=== PATIENT | female | born 1985 | race Asian ===

== ENCOUNTER 2018-05-18 10:51 | Emergency (ER) | payer OTHER ==
[2018-05-18 11:39] LABS: URINE HCG POC HCG NEGATIVE (Negative)
[2018-05-18 11:40] LABS: BILIRUBIN,URINE SMALL (NEG); CLARITY,URINE CLEAR; COLOR,URINE AMBER; GLUCOSE,URINE NEGATIVE (NEG); NITRITE,URINE NEGATIVE (NEG); PROTEIN,URINE NEGATIVE (NEG-TRACE)
[2018-05-18 11:49] LABS: BACTERIA,URINE MODERATE /HPF (0-FEW); SQUAMOUS EPITHELIAL CELL,UR MANY /LPF
== END 2018-05-18 12:15 | disposition home or self-care (01) ==
LOC: ER 12:15
DX: M54.2 Cervicalgia (principal)
CPT/HCPCS: 81001; 81025; 87086; 99284

== ENCOUNTER 2018-07-03 17:51 | Emergency (ER) | payer OTHER ==
[~2018-07-03] VITALS: Ht 157.5 cm; Wt 46.3 kg
[~2018-07-03 17:51] MED LIST: CEPH-264 PO; CYCL10TA2 PO; HYDR-971 PO; NAPR-514 PO; NAPR500T8 PO; PNV1TABL25 PO
[2018-07-03 19:27] LABS: BILIRUBIN,URINE NEGATIVE (NEG); CLARITY,URINE CLEAR; COLOR,URINE YELLOW; NITRITE,URINE NEGATIVE (NEG); PROTEIN,URINE NEGATIVE (NEG-TRACE)
[2018-07-03 19:32] LABS: RBC,URINE 0 /HPF (0-2); SQUAMOUS EPITHELIAL CELL,UR MANY /LPF; WBC,URINE OCC /HPF (0-4)
[2018-07-03 19:33] LABS: BACTERIA,URINE MODERATE /HPF (0-FEW)
--- NOTE | 2018-07-03 19:58 | PHYS DOC ---
Past Medical History Past Medical History: No Pertinent History Additional Past Medical Histor: TB Past Surgical History: No Surgical History Alcohol Use: None Drug Use: None Adult General Chief Complaint Chief Complaint: BACK PAIN - NO INJURY HPI HPI Patient is a 33 year old female presenting with low back pain and concerned about last motion. Was June 02. Back pain feels tight worse with twisting and moving no bowel or bladder incontinence no leg symptoms no abdominal pain no vaginal bleeding no other symptoms no dysuria Review of Systems Review of Systems Constitutional: Denies fever or chills [] Eyes: Denies change in visual acuity, redness, or eye pain [] HENT: Denies nasal congestion or sore throat [] Respiratory: Denies cough or shortness of breath [] Cardiovascular: No additional information not addressed in HPI [] GI: Denies abdominal pain, nausea, vomiting, bloody stools or diarrhea [] All other systems were reviewed and found to be within normal limits, except as documented in this note. Allergies Allergies Allergies Coded Allergies Type Severity Reaction Last Updated Verified No Known Drug Allergies 07/10/16 No Physical Exam Physical Exam Constitutional: Well developed, well nourished, no acute distress, non-toxic appearance. [] HENT: Normocephalic, atraumatic, bilateral external ears normal, oropharynx moist, no oral exudates, nose normal. [] Eyes: PERRLA, EOMI, conjunctiva normal, no discharge. [] Neck: Normal range of motion, no tenderness, supple, no stridor. [] Normal effort no increased work of breathing back there was mild paraspinous tenderness in the lumbar spine area. Abdomen: Bowel sounds normal, soft, no tenderness, no masses, no pulsatile masses. [] Skin: Warm, dry, no erythema, no rash. [] Extremities: No tenderness, no cyanosis, no clubbing, ROM intact, no edema. [] Neurologic: Alert and oriented X 3, normal motor function, normal sensory function, no focal deficits noted. [] Psychologic: Affect normal, judgement normal, mood normal. [] Current Patient Data Vital Signs Vital Signs Date Time Temp Pulse Resp B/P (MAP) Pulse Ox O2 Delivery O2 Flow Rate FiO2 07/03/18 19:06 98.1 77 16 109/72 (84) 99 Room Air 98.1 Lab Values Laboratory Tests Test 07/03/18 19:18 07/03/18 19:20 Urine Collection Type Unknown Urine Color Yellow Urine Clarity Clear Urine pH 6.0 Urine Specific [place] 1.025 Urine Protein Negative mg/dL (NEG-TRACE) Urine Glucose (UA) 100 mg/dL (NEG) Urine Ketones (Stick) Negative mg/dL (NEG) Urine Blood Negative (NEG) Urine Nitrite Negative (NEG) Urine Bilirubin Negative (NEG) Urine Urobilinogen Dipstick 1.0 mg/dL (0.2 mg/dL) Urine Leukocyte Esterase Negative (NEG) Urine RBC 0 /HPF (0-2) Urine WBC Occ /HPF (0-4) Urine Squamous Epithelial Cells Many /LPF Urine Bacteria Moderate /HPF (0-FEW) Urine Mucus Marked /LPF POC Urine HCG, Qualitative Hcg positive (Negative) EKG EKG [] Radiology/Procedures Radiology/Procedures [] Course & Med Decision Making Course & Med Decision Making Pertinent Labs and Imaging studies reviewed. (See chart for details) []Interpreted test is positive by dates the patient will be 4 weeks there are no abdominal symptoms no vaginal bleeding she is having muscular type back pain history was obtained with an waiter/waitress bar. Patient was encouraged to follow up with OB for routine care within 2 weeks ago the urinalysis there are many squames I suspect this is a contaminated sample patient was recommended to take Tylenol as needed for back pain. Dragon Disclaimer Dragon Disclaimer This electronic medical record was generated, in whole or in part, using a voice recognition dictation system. Departure Departure Impression: Primary Impression: Disposition: 01 HOME, SELF-CARE Condition: STABLE Referrals: CIELO BURGOS Jr, MD Patient Instructions: - First Trimester, [id number] Additional Instructions: see ob doctor within 2-3 weeks JESUS CHONG MD Jul 03, 2018 19:58
[2018-07-03 20:00] VITALS: BP 99/71
== END 2018-07-03 20:29 | disposition home or self-care (01) ==
LOC: ER 17:51
DX: Z33.1 Pregnant state, incidental (principal); M54.5 Low back pain
CPT/HCPCS: 81001; 81025; 87086; 99284

== ENCOUNTER 2018-07-05 08:49 | Emergency (ER) | payer OTHER ==
[~2018-07-05] VITALS: Ht 152.4 cm; Wt 45.4 kg
[2018-07-05 09:02] VITALS: BP 108/77
[2018-07-05 09:09] LABS: BILIRUBIN,URINE SMALL (NEG); NITRITE,URINE NEGATIVE (NEG); PROTEIN,URINE 30 mg/dL (NEG-TRACE)
--- NOTE | 2018-07-05 09:19 | PHYS DOC ---
Past Medical History Past Medical History: No Pertinent History Additional Past Medical Histor: TB Past Surgical History: No Surgical History Alcohol Use: None Drug Use: None Adult General Chief Complaint Chief Complaint: VAGINAL BLEEDING HPI HPI Patient is a 33 year old female who presents with vaginal bleeding in that begun today. She describes it as small amount of brown blood. Patient is a 5 para 4 last menstrual cycle May 31, 2018. Patient denies any abdominal pain, denies any nausea/ vomiting. Denies any urgency frequency or dysuria. She states she was here 2 days ago and was informed she is . Denies any trauma. Review of Systems Review of Systems Constitutional: Denies fever or chills [] Eyes: Denies change in visual acuity, redness, or eye pain [] HENT: Denies nasal congestion or sore throat [] Respiratory: Denies cough or shortness of breath [] Cardiovascular: No additional information not addressed in HPI [] GI: Reports vaginal bleeding in . Denies abdominal pain, nausea, vomiting, bloody stools or diarrhea [] : Denies dysuria or hematuria [] Musculoskeletal: Denies back pain or joint pain [] Integument: Denies rash or skin lesions [] Neurologic: Denies headache, focal weakness or sensory changes [] All other systems were reviewed and found to be within normal limits, except as documented in this note. Allergies Allergies Allergies Coded Allergies Type Severity Reaction Last Updated Verified No Known Drug Allergies 07/10/16 No Physical Exam Physical Exam Constitutional: Well developed, well nourished, no acute distress, non-toxic appearance. [] HENT: Normocephalic, atraumatic, bilateral external ears normal, oropharynx moist, no oral exudates, nose normal. [] Eyes: PERRLA, EOMI, conjunctiva normal, no discharge. [] Neck: Normal range of motion, no tenderness, supple, no stridor. [] Cardiovascular:Heart rate regular rhythm, no murmur [] Lungs & Thorax: Bilateral breath sounds clear to auscultation [] Abdomen: Bowel sounds normal, soft, no tenderness, no masses, no pulsatile masses. [] Pelvic exam External pelvic appears normal. Cervix is closed, no CMT, no adnexal tenderness , trace amount of brownish discharge in the vaginal vault. Skin: Warm, dry, no erythema, no rash. [] Back: No tenderness, no CVA tenderness. [] Extremities: No tenderness, no cyanosis, no clubbing, ROM intact, no edema. [] Neurologic: Alert and oriented X 3, normal motor function, normal sensory function, no focal deficits noted. [] Psychologic: Affect normal, judgement normal, mood normal. [] Current Patient Data Vital Signs Vital Signs Date Time Temp Pulse Resp B/P (MAP) Pulse Ox O2 Delivery O2 Flow Rate FiO2 07/05/18 09:02 98.4 89 18 108/77 (87) 89 Room Air 98.4 Lab Values Laboratory Tests Test 07/05/18 08:56 07/05/18 09:00 07/05/18 09:35 Urine Collection Type Void Urine Color Yellow Urine Clarity Hazy Urine pH 6.0 Urine Specific [place] 1.025 Urine Protein 30 mg/dL (NEG-TRACE) Urine Glucose (UA) Negative mg/dL (NEG) Urine Ketones (Stick) Trace mg/dL (NEG) Urine Blood Large (NEG) Urine Nitrite Negative (NEG) Urine Bilirubin Small (NEG) Urine Urobilinogen Dipstick 1.0 mg/dL (0.2 mg/dL) Urine Leukocyte Esterase Negative (NEG) Urine RBC >40 /HPF (0-2) Urine WBC 0 /HPF (0-4) Urine Squamous Epithelial Cells Mod /LPF Urine Bacteria Few /HPF (0-FEW) Urine Mucus Marked /LPF POC Urine HCG, Qualitative Hcg positive (Negative) White Blood Count 6.9 x10^3/uL (4.0-11.0) Red Blood Count 4.52 x10^6/uL (3.50-5.40) Hemoglobin 13.6 g/dL (12.0-15.5) Hematocrit 39.3 % (36.0-47.0) Mean Corpuscular Volume 87 fL (79-100) Mean Corpuscular Hemoglobin 30 pg (25-35) Mean Corpuscular Hemoglobin Concent 35 g/dL (31-37) Red Cell Distribution Width 12.3 % (11.5-14.5) Platelet Count 230 x10^3/uL (140-400) Neutrophils (%) (Auto) 62 % (31-73) Lymphocytes (%) (Auto) 26 % (24-48) Monocytes (%) (Auto) 6 % (0-9) Eosinophils (%) (Auto) 5 % (0-3) H Basophils (%) (Auto) 1 % (0-3) Neutrophils # (Auto) 4.3 x10^3uL (1.8-7.7) Lymphocytes # (Auto) 1.8 x10^3/uL (1.0-4.8) Monocytes # (Auto) 0.4 x10^3/uL (0.0-1.1) Eosinophils # (Auto) 0.4 x10^3/uL (0.0-0.7) Basophils # (Auto) 0.0 x10^3/uL (0.0-0.2) Maternal Serum HCG Beta Subunit 91596 mIU/mL (0-5) H Sodium Level 138 mmol/L (136-145) Potassium Level 3.3 mmol/L (3.5-5.1) L Chloride Level 104 mmol/L (98-107) Carbon Dioxide Level 26 mmol/L (21-32) Anion Gap 8 (6-14) Blood Urea Nitrogen 8 mg/dL (7-20) Creatinine 0.7 mg/dL (0.6-1.0) Estimated GFR (Cockcroft-Gault) 97.6 Glucose Level 98 mg/dL (70-99) Calcium Level 8.9 mg/dL (8.5-10.1) Laboratory Tests 07/05/18 09:35 Laboratory Tests 07/05/18 09:35 Microbiology 07/05/18 Wet Prep - Final, Complete EKG EKG [] Radiology/Procedures Radiology/Procedures []PROCEDURE: OB <14 WKS W/TV Obstetrical ultrasound, 07/05/2018: HISTORY: , vaginal bleeding The uterus is enlarged. It demonstrates a single gestational sac. The gestational sac contains a pole demonstrating a crown-rump length of 7 mm compatible with a gestational age of 6 weeks and 4 days. This yields a sonographic EDC of 02/24/2018. cardiac activity is present with a heart rate of 132 bpm. Directly adjacent to the gestational sac there is a hypoechoic process measuring approximately 2 x 2 x 2.2 cm, compatible with a subchorionic hemorrhage. There is also a larger heterogeneous mass adjacent to the gestational sac which appears to lie within or protruding into the uterine cavity, measuring 4.1 x 2.5 x 4.2 cm. it demonstrates isoechoic and hyperechoic components. The ovaries are of normal size. A 1.4 cm simple cyst is present in the right ovary. No adnexal mass is seen. No free fluid is evident in the pelvis. IMPRESSION: 1. Single viable intrauterine fetus of 6-7 weeks gestational age. 2. Small subchorionic hemorrhage. 3. Additional heterogeneous mass in the central uterine cavity with diagnostic considerations including an organized hematoma, endometrial polyp or submucosal fibroid. This does not have the appearance of a blighted twin or gestational trophoblastic disease. 4. Small right ovarian cyst. 5. Sonographic follow-up is suggested. Electronically signed by: Krishna Go MD (07/05/2018 10:11 AM) [facility] DICTATED and SIGNED BY: KRISHNA GO MD DATE: 07/05/18 1000 Course & Med Decision Making Course & Med Decision Making Pertinent Labs and Imaging studies reviewed. (See chart for details) This is a 33-year-old female 5 para 4 presenting to the ED today with vaginal bleeding in that began this morning. She had trace spotting on vaginal exam. Positive urine hCG, urine analysis is negative for infection. Beta hCG 28,529. Wet prep is negative for any acute findings. CBC with a normal hemoglobin and hematocrit, BMP with no acute findings. Blood group B positive. OB ultrasound IMPRESSION: 1. Single viable intrauterine fetus of 6-7 weeks gestational age. 2. Small subchorionic hemorrhage. 3. Additional heterogeneous mass in the central uterine cavity with diagnostic considerations including an organized hematoma, endometrial polyp or submucosal fibroid. This does not have the appearance of a blighted twin or gestational trophoblastic disease. 4. Small right ovarian cyst. 5. Sonographic follow-up is suggested. Results were given to patient. Pelvic rest was recommended. Patient was instructed to follow-up with her YOUTUBER on Saturday. Provided proper return precautions including the need to return to the ED at any point symptoms worsen or she has new concerning symptoms. Dragon Disclaimer Dragon Disclaimer This electronic medical record was generated, in whole or in part, using a voice recognition dictation system. Departure Departure Impression: Primary Impression: Threatened Additional Impression: Subchorionic bleed Disposition: HOME, SELF-CARE Condition: STABLE Referrals: NO PCP (PCP) CIELO BURGOS Jr, MD follow up with the OBGYN on Saturday Patient Instructions: Threatened Miscarriage, [id number] Additional Instructions: You were seen for vaginal bleeding in . Please maintain pelvic rest, do not have sex until you're seen by the YOUTUBER, do not do any strenuous activities. Contact your YOUTUBER or the provided YOUTUBER on Saturday and set up a follow-up appointment as soon as possible. Please return to the emergency room at any point symptoms worsen. Problem Qualifiers Additional Impression: Subchorionic bleed Fetus number: single or unspecified fetus Trimester: first trimester Qualified Codes: O41.8X10 - Other specified disorders of amniotic fluid and membranes, first trimester, not applicable or unspecified; O46.8X1 - Other antepartum hemorrhage, first trimester TORRES BECERRA FLOOR COVERER Jul 05, 2018 09:19
[2018-07-05 09:25] LABS: CLARITY,URINE HAZY; COLOR,URINE YELLOW
[2018-07-05 09:26] LABS: BACTERIA,URINE FEW /HPF (0-FEW); RBC,URINE >40 /HPF (0-2); SQUAMOUS EPITHELIAL CELL,UR MOD /LPF; WBC,URINE 0 /HPF (0-4)
[2018-07-05 09:55] LABS: CALCIUM 8.9 mg/dL (8.5-10.1); CREATININE 0.7 mg/dL (0.6-1.0); GFR 97.6; POTASSIUM 3.3 mmol/L (3.5-5.1)
[2018-07-05 09:56] LABS: BASO % 1 % (0-3); EOS # 0.4 x10^3/uL (0.0-0.7); EOS % 5 % (0-3); HEMATOCRIT 39.3 % (36.0-47.0); HEMOGLOBIN 13.6 g/dL (12.0-15.5); LYMPH # 1.8 x10^3/uL (1.0-4.8); LYMPH % 26 % (24-48); MEAN CORPUSCULAR HEMOGLOBIN 30 pg (25-35); MEAN CORPUSCULAR HGB CONC 35 g/dL (31-37); MEAN CORPUSCULAR VOLUME 87 fL (79-100); MONO # 0.4 x10^3/uL (0.0-1.1); MONO % 6 % (0-9); NEUT # 4.3 x10^3uL (1.8-7.7); NEUT % 62 % (31-73); PLATELET COUNT 230 x10^3/uL (140-400); RED BLOOD COUNT 4.52 x10^6/uL (3.50-5.40); RED CELL DISTRIBUTION WIDTH 12.3 % (11.5-14.5); WHITE BLOOD COUNT 6.9 x10^3/uL (4.0-11.0)
--- NOTE | 2018-07-05 10:15 | RAD ---
Obstetrical ultrasound, 07/05/2018: HISTORY: , vaginal bleeding The uterus is enlarged. It demonstrates a single gestational sac. The gestational sac contains a pole demonstrating a crown-rump length of 7 mm compatible with a gestational age of 6 weeks and 4 days. This yields a sonographic EDC of 02/24/2018. cardiac activity is present with a heart rate of 132 bpm. Directly adjacent to the gestational sac there is a hypoechoic process measuring approximately 2 x 2 x 2.2 cm, compatible with a subchorionic hemorrhage. There is also a larger heterogeneous mass adjacent to the gestational sac which appears to lie within or protruding into the uterine cavity, measuring 4.1 x 2.5 x 4.2 cm. it demonstrates isoechoic and hyperechoic components. The ovaries are of normal size. A 1.4 cm simple cyst is present in the right ovary. No adnexal mass is seen. No free fluid is evident in the pelvis. IMPRESSION: 1. Single viable intrauterine fetus of 6-7 weeks gestational age. 2. Small subchorionic hemorrhage. 3. Additional heterogeneous mass in the central uterine cavity with diagnostic considerations including an organized hematoma, endometrial polyp or submucosal fibroid. This does not have the appearance of a blighted twin or gestational trophoblastic disease. 4. Small right ovarian cyst. 5. Sonographic follow-up is suggested. Electronically signed by: Krishna Go MD (07/05/2018 10:11 AM) [facility]
[2018-07-07 14:31] LABS: GC PROBE Negative (Negative)
== END 2018-07-05 11:55 | disposition home or self-care (01) ==
LOC: ER 08:49
DX: O20.0 Threatened abortion (principal); O46.8X1 Other antepartum hemorrhage, first trimester; Z3A.01 Less than 8 weeks gestation of pregnancy
CPT/HCPCS: 36415; 76801; 76817; 80048; 81001; 81025; 84702; 85025; 86850; 86870; 86900; 86901; 86902; 87491; 87591; 99285; Q0111

== ENCOUNTER 2018-08-29 15:29 | Emergency (ER) | payer OTHER ==
[~2018-08-29] VITALS: Ht 160 cm; Wt 45.4 kg
[2018-08-29 17:50] LABS: BILIRUBIN,URINE NEGATIVE (NEG); CLARITY,URINE CLEAR; COLOR,URINE YELLOW; NITRITE,URINE NEGATIVE (NEG); PROTEIN,URINE NEGATIVE (NEG-TRACE)
[2018-08-29 18:04] LABS: BACTERIA,URINE MODERATE /HPF (0-FEW); RBC,URINE RARE /HPF (0-2); SQUAMOUS EPITHELIAL CELL,UR MANY /LPF; WBC,URINE OCC /HPF (0-4)
--- NOTE | 2018-08-29 18:34 | PHYS DOC ---
Past Medical History Past Medical History: No Pertinent History Additional Past Medical Histor: TB Past Surgical History: No Surgical History Alcohol Use: None Drug Use: None Adult General Chief Complaint Chief Complaint: GI PROBLEM HPI HPI Patient is a 33 year old female who presents with Left sided mid abdominal pain. Patient is . Review of Systems Review of Systems Constitutional: Denies fever or chills [] Eyes: Denies change in visual acuity, redness, or eye pain [] HENT: Denies nasal congestion or sore throat [] Respiratory: Denies cough or shortness of breath [] Cardiovascular: No additional information not addressed in HPI [] GI: Denies abdominal pain, nausea, vomiting, bloody stools or diarrhea [] : Denies dysuria or hematuria [] Musculoskeletal: Denies back pain or joint pain [] Integument: Denies rash or skin lesions [] Neurologic: Denies headache, focal weakness or sensory changes [] Endocrine: Denies polyuria or polydipsia [] All other systems were reviewed and found to be within normal limits, except as documented in this note. Allergies Allergies Allergies Coded Allergies Type Severity Reaction Last Updated Verified No Known Drug Allergies 07/10/16 No Physical Exam Physical Exam Constitutional: Well developed, well nourished, no acute distress, non-toxic appearance. [] HENT: Normocephalic, atraumatic, bilateral external ears normal, oropharynx moist, no oral exudates, nose normal. [] Eyes: PERRLA, EOMI, conjunctiva normal, no discharge. [] Neck: Normal range of motion, no tenderness, supple, no stridor. [] Cardiovascular:Heart rate regular rhythm, no murmur [] Lungs & Thorax: Bilateral breath sounds clear to auscultation [] Abdomen: Bowel sounds normal, soft, no tenderness, no masses, no pulsatile masses. [] Skin: Warm, dry, no erythema, no rash. [] Back: No tenderness, no CVA tenderness. [] Extremities: No tenderness, no cyanosis, no clubbing, ROM intact, no edema. [] Neurologic: Alert and oriented X 3, normal motor function, normal sensory function, no focal deficits noted. [] Psychologic: Affect normal, judgement normal, mood normal. [] Current Patient Data Vital Signs Vital Signs Date Time Temp Pulse Resp B/P (MAP) Pulse Ox O2 Delivery O2 Flow Rate FiO2 10/5/18 16:35 98.5 17 98/53 (68) 99 98.5 Lab Values Laboratory Tests Test 08/29/18 17:25 08/29/18 17:45 Urine Collection Type Unknown Urine Color Yellow Urine Clarity Clear Urine pH 7.0 Urine Specific [place] 1.015 Urine Protein Negative mg/dL (NEG-TRACE) Urine Glucose (UA) Negative mg/dL (NEG) Urine Ketones (Stick) Negative mg/dL (NEG) Urine Blood Negative (NEG) Urine Nitrite Negative (NEG) Urine Bilirubin Negative (NEG) Urine Urobilinogen Dipstick 1.0 mg/dL (0.2 mg/dL) Urine Leukocyte Esterase Trace (NEG) Urine RBC Rare /HPF (0-2) Urine WBC Occ /HPF (0-4) Urine Squamous Epithelial Cells Many /LPF Urine Bacteria Moderate /HPF (0-FEW) Maternal Serum HCG Beta Subunit 11084 mIU/mL (0-5) H EKG EKG [] Radiology/Procedures Radiology/Procedures Abdominal US Impressions: [facility] [address] [place], [place] [id number] IMAGING REPORT Signed PATIENT: YORDY STEINER ACCOUNT: [id number] : 1985 LOCATION: ER AGE: 33 SEX: F EXAM STATUS: REG ER ORD. PHYSICIAN: JOHANN CHUN APRN REASON: ABDOMINAL PAIN PROCEDURE: PREG MORE THAN OR EQ TO 14 WKS Limited OB ultrasound greater than 14 weeks 08/29/2018 CLINICAL HISTORY: Second trimester with abdominal pain. TECHNIQUE: A real-time ultrasound examination of the gravid uterus was performed. Multiple images were obtained. FINDINGS: Comparison study is dated 07/05/2018. There is a single living IUP. cardiac and somatic activity is seen. heart rate is 162 bpm. The fetus is in a variable position. The placenta is in a fundal location. No abnormality of the placenta is seen. The amniotic fluid volume is within normal limits. The maternal cervix is closed. It measures 3.1 cm in length. Neither maternal ovary is visualized. The following measurements were obtained: BPD 3.2 cm 16 weeks 0 days HC 11.9 cm 15 weeks 6 days AC 9.2 cm 15 weeks 3 days FL 1.7 cm 15 weeks 0 days The estimated gestational age by ultrasound is 15 weeks 4 days plus or minus a standard deviation of 10 days. The estimated date of delivery by ultrasound today study is 02/16/2019. Since the previous examination there has been appropriate interval growth. Detailed evaluation of anatomy was not performed due to the early age of this gestation. IMPRESSION: Single living IUP with an estimated gestational age by ultrasound of 15 weeks 4 days +/- a standard deviation of 10 days. Since the previous examination there has been appropriate interval growth. Electronically signed by: Galileo Montano MD (08/29/2018 6:38 PM) [facility] DICTATED and SIGNED BY: GALILEO MONTANO MD DATE: 08/29/181828 Course & Med Decision Making Course & Med Decision Making 33 year old female that presents with left sided mid abdominal pain that comes and goes for the last month. Abdomen is soft and nontender. Lungs are clear to auscultation. Patient complains of no pain. Patient denies any vaginal bleeding or vaginal discharge. Patient denies any urinary symptoms. Patient states that her last bowel movement was this morning and it was normal for her. Patient denies any nausea, vomiting, diarrhea. Patient states she has taken no medications. Patient states that she sees Dr. Shrestha for an OB. Patient states she is unsure of how she is. Patient's last first day of her period was May 14. Patient has been 5 times and has had her children. Patient states that her right-sided mid abdominal pain started Abdominal pain started this morning at 8:00 after she lifted her urine half old daughter and then states that the pain went away and then came back around 10:00 and then was only there for 30 minutes and then left again. His urine is slightly infected and she will be treated for urinary tract infection. Ultrasound shows Single living IUP with an estimated gestational age by ultrasound of 15 weeks 4 days +/- a standard deviation of 10 days. Since the previous examination there has been appropriate interval growth. Patient still has no abdominal pain upon reexamination. Patient is stable and will be discharged. Patient should follow up with her primary care or her OB doc as soon as possible. Patient should come back to the ED if she begins having constant intense abdominal pain , vaginal bleeding. [] Dragon Disclaimer Dragon Disclaimer This electronic medical record was generated, in whole or in part, using a voice recognition dictation system. Departure Departure Impression: Primary Impression: Abdominal pain during Disposition: 01 HOME, SELF-CARE Condition: STABLE Referrals: CARITO HOWARD MD (PCP) Patient Instructions: Abdominal Pain During Additional Instructions: Follow up with your primary care physician or OB as soon as possible. Return to the ED if you begin bleeding vaginally or have continuous intense abdominal pain. Scripts Nitrofurantoin Monohyd/M-Cryst (MACROBID 100 MG CAPSULE) 100 Mg Capsule 1 CAP PO BID, #14 CAP Prov: JOHANN CHUN APRN 08/29/18 Problem Qualifiers Primary Impression: Abdominal pain during Trimester: first trimester Qualified Codes: O26.891 - Other specified related conditions, first trimester; R10.9 - Unspecified abdominal pain JOHANN CHUN INJECTION MOLDING TECHNICIAN Aug 29, 2018 18:34
--- NOTE | 2018-08-29 18:42 | RAD ---
Limited OB ultrasound greater than 14 weeks 08/29/2018 CLINICAL HISTORY: Second trimester with abdominal pain. TECHNIQUE: A real-time ultrasound examination of the gravid uterus was performed. Multiple images were obtained. FINDINGS: Comparison study is dated 07/05/2018. There is a single living IUP. cardiac and somatic activity is seen. heart rate is 162 bpm. The fetus is in a variable position. The placenta is in a fundal location. No abnormality of the placenta is seen. The amniotic fluid volume is within normal limits. The maternal cervix is closed. It measures 3.1 cm in length. Neither maternal ovary is visualized. The following measurements were obtained: BPD 3.2 cm 16 weeks 0 days HC 11.9 cm 15 weeks 6 days AC 9.2 cm 15 weeks 3 days FL 1.7 cm 15 weeks 0 days The estimated gestational age by ultrasound is 15 weeks 4 days plus or minus a standard deviation of 10 days. The estimated date of delivery by ultrasound today study is 02/16/2019. Since the previous examination there has been appropriate interval growth. Detailed evaluation of anatomy was not performed due to the early age of this gestation. IMPRESSION: Single living IUP with an estimated gestational age by ultrasound of 15 weeks 4 days +/- a standard deviation of 10 days. Since the previous examination there has been appropriate interval growth. Electronically signed by: Galileo Montano MD (08/29/2018 6:38 PM) [facility]
[2018-08-29] MEDS ORDERED: NITR100C62 PO (19:19)
[2018-08-29 19:26] VITALS: BP 94/57
== END 2018-08-29 19:28 | disposition home or self-care (01) ==
LOC: ER 15:29
DX: O26.892 Other specified pregnancy related conditions, second trimester (principal); R10.9 Unspecified abdominal pain; Z3A.15 15 weeks gestation of pregnancy
CPT/HCPCS: 36415; 76805; 81001; 84702; 99285-25

== ENCOUNTER → 2018-10-06 | Outpatient (CLI) | payer OTHER ==
[~2018-10-06] MED LIST changes: +NITR100C62 PO
[2018-10-06 10:07] LABS: BILIRUBIN,URINE NEGATIVE (NEG); CLARITY,URINE CLEAR; COLOR,URINE YELLOW; NITRITE,URINE NEGATIVE (NEG); PROTEIN,URINE NEGATIVE (NEG-TRACE)
[2018-10-06 10:26] LABS: BASO % 1 % (0-3); EOS # 0.3 x10^3/uL (0.0-0.7); EOS % 3 % (0-3); HEMATOCRIT 38.4 % (36.0-47.0); HEMOGLOBIN 13.2 g/dL (12.0-15.5); LYMPH # 1.8 x10^3/uL (1.0-4.8); LYMPH % 21 % (24-48); MEAN CORPUSCULAR HEMOGLOBIN 31 pg (25-35); MEAN CORPUSCULAR HGB CONC 34 g/dL (31-37); MEAN CORPUSCULAR VOLUME 89 fL (79-100); MONO # 0.4 x10^3/uL (0.0-1.1); MONO % 4 % (0-9); NEUT # 6.4 x10^3uL (1.8-7.7); NEUT % 72 % (31-73); PLATELET COUNT 212 x10^3/uL (140-400); RED BLOOD COUNT 4.29 x10^6/uL (3.50-5.40); RED CELL DISTRIBUTION WIDTH 13.5 % (11.5-14.5); WHITE BLOOD COUNT 8.9 x10^3/uL (4.0-11.0)
[2018-10-06 10:39] LABS: SQUAMOUS EPITHELIAL CELL,UR MOD /LPF
[2018-10-06 10:40] LABS: BACTERIA,URINE FEW /HPF (0-FEW); RBC,URINE RARE /HPF (0-2); WBC,URINE OCC /HPF (0-4)
--- NOTE | 2018-10-06 14:17 | RAD ---
OB ultrasound History: Unsure of dates. Anatomic survey and estimated weight. Comparison: Ultrasound OB August 29, 2018. Findings: There is a single intrauterine gestation in breech presentation. The placenta is fundal in location without evidence of placenta previa. The amount of amniotic fluid appears appropriate. Amniotic fluid index is 14.4 cm. Cervix is closed with cervical length of 3.36 cm. Biometric data is as follows: BPD = 4.55 cm for 19 weeks 5 days. HC = 17.52 cm for 20 weeks 0 days. AC = 15.97 cm for 21 weeks 1 days. FL = 3.23 cm for 20 weeks 0 days. HC/AC = 1.10, within normal limits. Overall, the average ultrasound age is 20 weeks 2 days for an estimated date of delivery of February 21, 2019. Estimated gestational age by last menstrual period calculation is 21 weeks 0 days. Estimated weight is 360 +/- 53 grams; percentile was not calculated. A 4 chamber heart is identified with positive cardiac activity. Heart appears appropriate in size and location. The estimated heart rate is 150 beats per minute. Bilateral upper and lower extremities are identified. There is a three-vessel cord with cord insertion visualized. stomach and urinary bladder are identified. Both kidneys are seen. The spine and brain are unremarkable. Nose and lips are visualized. No gross abnormalities are identified. gender appears male. Maternal ovaries are not visualized. IMPRESSION: 1. Single live intrauterine with average ultrasound age of 20 weeks 2 days. Estimated date of delivery is February 21, 2019. 2. There has been appropriate interval growth. Electronically signed by: Aydin Lynn MD (10/06/2018 2:14 PM) [place] [id number]
== END | disposition home or self-care (01) ==
LOC: LAB 09:24
PROVIDERS: ATTEND Family Medicine
DX: Z34.82 Encounter for supervision of other normal pregnancy, second trimester (principal); Z3A.20 20 weeks gestation of pregnancy
CPT/HCPCS: 76805; 81001; 85025; 86592; 86703; 86706; 86762; 86850; 86900; 86901; 87340; 87491; 87591

== ENCOUNTER 2019-01-30 16:50 | Observation (INO) | payer OTHER ==
[~2019-01-30 16:50] MED LIST changes: +HYDR-3164 PO; -HYDR-971 PO
== END 2019-01-30 18:35 | disposition home or self-care (01) ==
LOC: 3 SO LND 16:50
PROVIDERS: ADMIT Family Medicine; ATTEND Family Medicine
DX: O36.8130 Decreased fetal movements, third trimester, not applicable or unspecified (principal); Z3A.36 36 weeks gestation of pregnancy
CPT/HCPCS: G0378; G0379; 59025

== ENCOUNTER 2019-02-04 16:49 | Observation (INO) | payer OTHER ==
[2019-02-04] MEDS ORDERED: IV RINGERS,LACTATED 1000ML 1,000 ML IV SCH (17:01)
--- NOTE | 2019-02-04 18:11 | RAD ---
Biophysical profile: Clinical indications: Decreased movement. Findings: A single intrauterine is present in the cephalic position. heart rate is 137. breathing movements: 2. motion: 2. tone: 2. Amniotic fluid volume: 2. Therefore, the biophysical profile score is 8 out of 8. Cervical length-not visualized. JERMAINE using the 4 quadrant method is 9.5 cm. Impression: Biophysical profile score is 8 out of 8. Electronically signed by: Teodoro Sanford MD (02/04/2019 6:08 PM) [facility]
== END 2019-02-04 18:10 | disposition home or self-care (01) ==
LOC: 3 SO LND 16:49
PROVIDERS: ADMIT Family Medicine; ATTEND Family Medicine
DX: O36.8130 Decreased fetal movements, third trimester, not applicable or unspecified (principal); Z3A.37 37 weeks gestation of pregnancy
CPT/HCPCS: 76819; G0379; 59025

== ENCOUNTER 2019-02-20 02:02 | Inpatient (IN) | payer OTHER ==
[~2019-02-20] VITALS: Ht 157.5 cm; Wt 55.3 kg
[2019-02-20] MEDS ORDERED: IV RINGERS,LACTATED 1000ML 1,000 ML IV SCH (02:07)
[2019-02-20 05:36] LABS: BILIRUBIN,URINE NEGATIVE (NEG); CLARITY,URINE CLEAR; COLOR,URINE YELLOW; NITRITE,URINE NEGATIVE (NEG); PH,URINE 6.5; PROTEIN,URINE NEGATIVE (NEG-TRACE)
[2019-02-20 05:46] LABS: BACTERIA,URINE MANY /HPF (0-FEW); RBC,URINE OCC /HPF (0-2); SQUAMOUS EPITHELIAL CELL,UR MANY /LPF
--- NOTE | 2019-02-20 07:38 | PDOC1 ---
OB - History Hx of Present Care: None Ultrasounds: No ultrasounds, Normal mid trimester US Medical Complications: Other (Latent TB) Past Family/Social History * Past Medical, Surgical, Family and Obstetric Histories reviewed from chart. Blood Type: B+ Rubella: Immune RPR/VDRL: Negative GBS Status: Negative HBsAG: Negative OB - Chief Complaint & HPI Date of Admission: Date of Admission: Feb 20, 2019 at 02:02 Chief Complaint/History : 6 Para: 5 EDC: Feb 22, 2019 EGA: 39.5 Reason for admission: active labor Admission Nurse Assessment Rev: No OB - Admission Exam Physical Exam HEENT: Normal, Nasal Mucosa Normal, Oropharynx Normal, Moist Membranes, Fontanelles Normal Heart: Regular Rate Lungs: Clear, Equal Abdomen: Gravid Extremities: Normal Pulses, No tenderness or swelling Reflexes: Normal Cervical Dilatation: 3cm Effacement: 75% Station: -2 Membranes: Intact Heart Rate: Normal Accelerations: Accelerations Present Decelerations: No decelerations Short Term Variability: Present Half-Way Variability: Moderate Contractions on Admission: 6-10 Minutes Apart Date/Time Contractions Began;: 02/19/19 at 2200 Intensity: Mild A/P Pt is a 38yo at 39.5wga admitted in first stage of labor. Pt has not transportation at home to bring her back so decision was made to augment her labor 1)GBS negative CARITO HOWARD MD Feb 20, 2019 07:38
[2019-02-20] MEDS ORDERED: ONDANSETRON PF 4 MG/2 ML VIAL. IV PRN (07:45)
[2019-02-20] MEDS ORDERED: 0.9 % SODIUM CHLORIDE 10 ML DISP.SYRIN. IV PRN ×2 (07:45→14:15)
[2019-02-20] MEDS ORDERED: IV RINGERS,LACTATED 1000ML 1,000 ML IV PRN (07:45)
[2019-02-20] MEDS ORDERED: IBUPROFEN 400 MG TABLET. PO PRN (07:45)
[2019-02-20] MEDS ORDERED: LIDOCAINE 1% PF 30 ML VIAL. INJ PRN (07:45)
[2019-02-20] MEDS ORDERED: fentaNYL PF VIAL 100 MCG/2 ML VIAL IV PRN (07:45)
[2019-02-20] MEDS ORDERED: OXYTOCIN 30 UNIT/500 ML PREMIX 500 ML IV PRN ×3 (07:45→14:15)
[2019-02-20] MEDS ORDERED: ACETAMINOPHEN 325 MG TABLET. PO PRN ×2 (07:45→14:15)
[2019-02-20] MEDS ORDERED: CITRIC ACID/SODIUM CITRATE 30 ML SOLUTION. PO PRN (07:45)
[2019-02-20] MEDS ORDERED: MAG HYDROX/ALUMINUM HYD/SIMETH 30 ML ORAL.SUSP PO PRN ×2 (07:45→14:15)
[2019-02-20] MEDS ORDERED: TERBUTALINE 1 MG/ML VIAL. SQ PRN (07:45)
[2019-02-20 07:59] VITALS: BP 108/72
[2019-02-20 08:20] LABS: BASO # 0.1 x10^3/uL (0.0-0.2); BASO % 1 % (0-3); EOS # 0.3 x10^3/uL (0.0-0.7); EOS % 3 % (0-3); HEMATOCRIT 34.8 % (36.0-47.0); HEMOGLOBIN 11.3 g/dL (12.0-15.5); LYMPH # 2.1 x10^3/uL (1.0-4.8); LYMPH % 19 % (24-48); MEAN CORPUSCULAR HEMOGLOBIN 26 pg (25-35); MEAN CORPUSCULAR HGB CONC 33 g/dL (31-37); MEAN CORPUSCULAR VOLUME 78 fL (79-100); MONO # 0.9 x10^3/uL (0.0-1.1); MONO % 9 % (0-9); NEUT # 7.5 x10^3uL (1.8-7.7); NEUT % 69 % (31-73); PLATELET COUNT 178 x10^3/uL (140-400); RED BLOOD COUNT 4.44 x10^6/uL (3.50-5.40); RED CELL DISTRIBUTION WIDTH 15.6 % (11.5-14.5); WHITE BLOOD COUNT 10.8 x10^3/uL (4.0-11.0)
--- NOTE | 2019-02-20 14:02 | PDOC ---
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 Howard Signs of Intrauterine Infectio: None DIAGNOSIS Pt is a 34yo [id number] s/p at 39.5wga 1) 2)GBS negative CARITO HOWARD MD Feb 20, 2019 14:02
[2019-02-20] MEDS: IBUPROFEN 400 MG TABLET. PO SCH (14:15)
[2019-02-20] MEDS ORDERED: BENZOCAINE 20% TOPICAL AEROSOL SPRAY 57GM CAN. TP PRN (14:15)
[2019-02-20] MEDS ORDERED: HYDROCORTISONE 1% TOPICAL OINTMENT 30GM TUBE. TP PRN (14:15)
[2019-02-20] MEDS ORDERED: ZOLPIDEM 5 MG TABLET. PO PRN (14:15)
[2019-02-20] MEDS ORDERED: MMR per PROTOCOL. MC PRN (14:15)
[2019-02-20] MEDS ORDERED: SIMETHICONE 80 MG TAB.CHEW PO PRN (14:15)
[2019-02-20] MEDS ORDERED: MAGNESIUM HYDROXIDE 2,400 MG/30 ML ORAL.SUSP. PO PRN (14:15)
[2019-02-20] MEDS ORDERED: PHENYLEPH/MINERAL OIL/PETROLAT RECTAL OINTMENT 28GM TUBE. RC PRN (14:15)
[2019-02-20] MEDS ORDERED: diphenhydrAMINE HCL 25 MG CAPSULE PO PRN (14:15)
[2019-02-20] MEDS ORDERED: DIPHTH,PERTUSS(ACELL),TET TOX 0.5 ML DISP.SYRIN. VAX IM ONE (16:00)
[2019-02-20 16:18] VITALS: BP 102/68
[2019-02-20 17:30] VITALS: BP 112/66
[2019-02-20 21:48] VITALS: BP 102/68
[2019-02-21] MEDS: IBUPROFEN 400 MG TABLET. PO SCH ×3 (00:39→21:31)
[2019-02-21 01:20] VITALS: BP 102/71
[2019-02-21 06:20] VITALS: BP 98/62
[2019-02-21] MEDS: DOCUSATE SODIUM 100 MG CAPSULE. PO PRN (09:09)
[2019-02-21 10:25] VITALS: BP 104/72
--- NOTE | 2019-02-21 10:53 | PDOC ---
OB Progress Note Date of Service 02/21/19 Time of Evaluation 1030 Date: 02/20/19 Time: 1323 Notes Pt is doing well. Pain is well controlled with Ibuprofen. Bleeding is about the same as a period. She is both breast and bottlefeeding. OB VITAL SIGNS: Temperature (98.1), Blood Pressure (98/62), Pulse (76), O2 Sat (97) Lab Laboratory Tests Test 02/20/19 05:20 02/20/19 07:35 Urine Collection Type Unknown Urine Color Yellow Urine Clarity Clear Urine pH 6.5 Urine Specific [place] 1.015 Urine Protein Negative mg/dL (NEG-TRACE) Urine Glucose (UA) Negative mg/dL (NEG) Urine Ketones (Stick) Negative mg/dL (NEG) Urine Blood Negative (NEG) Urine Nitrite Negative (NEG) Urine Bilirubin Negative (NEG) Urine Urobilinogen Dipstick 1.0 mg/dL (0.2 mg/dL) Urine Leukocyte Esterase Negative (NEG) Urine RBC Occ /HPF (0-2) Urine WBC 1-4 /HPF (0-4) Urine Squamous Epithelial Cells Many /LPF Urine Bacteria Many /HPF (0-FEW) Urine Mucus Marked /LPF White Blood Count 10.8 x10^3/uL (4.0-11.0) Red Blood Count 4.44 x10^6/uL (3.50-5.40) Hemoglobin 11.3 g/dL (12.0-15.5) Hematocrit 34.8 % (36.0-47.0) Mean Corpuscular Volume 78 fL (79-100) Mean Corpuscular Hemoglobin 26 pg (25-35) Mean Corpuscular Hemoglobin Concent 33 g/dL (31-37) Red Cell Distribution Width 15.6 % (11.5-14.5) Platelet Count 178 x10^3/uL (140-400) Neutrophils (%) (Auto) 69 % (31-73) Lymphocytes (%) (Auto) 19 % (24-48) Monocytes (%) (Auto) 9 % (0-9) Eosinophils (%) (Auto) 3 % (0-3) Basophils (%) (Auto) 1 % (0-3) Neutrophils # (Auto) 7.5 x10^3uL (1.8-7.7) Lymphocytes # (Auto) 2.1 x10^3/uL (1.0-4.8) Monocytes # (Auto) 0.9 x10^3/uL (0.0-1.1) Eosinophils # (Auto) 0.3 x10^3/uL (0.0-0.7) Basophils # (Auto) 0.1 x10^3/uL (0.0-0.2) Treponema pallidum Antibody Nonreactive (Nonreactive) Medications Current Medications Ringer's Solution 1,000 ml @ 125 mls/hr Q8H IV ; Start 02/20/19 at 02:07; Stop 02/20/19 at 07:41; Status DC Sodium Chloride (Normal Saline Flush) 3 ml QSHIFT PRN IV AFTER MEDS AND BLOOD DRAWS; Start 02/20/19 at 07:45; Stop 02/20/19 at 16:47; Status DC Ringer's Solution 1,000 ml @ 125 mls/hr Q8H PRN IV P Last administered on at 08:44; Start 02/20/19 at 07:45; Stop 02/20/19 at 16:47; Status DC Fentanyl Citrate (Fentanyl 2ml Vial) 100 mcg PRN Q30MIN PRN IV Severe pain; Start 02/20/19 at 07:45; Stop 02/20/19 at 16:47; Status DC Acetaminophen (Tylenol) 650 mg PRN Q6HRS PRN PO MILD PAIN / TEMP; Start at 07:45; Stop 02/20/19 at 14:09; Status DC Ondansetron HCl (Zofran) 4 mg PRN Q4HRS PRN IV NAUSEA/VOMITING; Start 02/20/19 at 07:45; Stop 02/20/19 at 16:47; Status DC Al Hydroxide/Mg Hydroxide (Mylanta Plus Xs) 30 ml PRN Q4HRS PRN PO HEARTBURN / GAS; Start 02/20/19 at 07:45; Stop 02/20/19 at 14:09; Status DC Citric Acid/ Sodium Citrate (Bicitra) 30 ml 1X PRN PRN PO DYSPEPSIA; Start at 07:45; Stop 02/20/19 at 16:47; Status DC Terbutaline Sulfate (Brethine) 0.25 mg 1X PRN PRN SQ SEE COMMENTS; Start at 07:45; Stop 02/20/19 at 16:47; Status DC Lidocaine HCl (Xylocaine 1% Pf 30ml Vial) 30 ml 1X PRN PRN INJ SEE COMMENTS; Start 02/20/19 at 07:45; Stop 02/20/19 at 16:47; Status DC Oxytocin/Sodium Chloride 500 ml @ 0 mls/hr CONT PRN IV SEE I/O RECORD Last administered on 02/20/19at 08:46; Start 02/20/19 at 07:45; Stop 02/20/19 at 14:09 ; Status DC Oxytocin/Sodium Chloride 500 ml @ 0 mls/hr CONT PRN PRN IV Post delivery bleeding; Start 02/20/19 at 07:45; Stop 02/20/19 at 14:09; Status DC Ibuprofen (Motrin) 800 mg PRN Q6HRS PRN PO PAIN MODERATE POST DELIVERY; Start 02/20/19 at 07:45; Stop 02/20/19 at 14:10; Status DC Sodium Chloride (Normal Saline Flush) 10 ml QSHIFT PRN IV AFTER MEDS AND BLOOD DRAWS; Start 02/20/19 at 14:15; Stop 02/20/19 at 16:47; Status DC Oxytocin/Sodium Chloride 500 ml @ 62.5 mls/hr CONT PRN IV SEE I/O RECORD; Start 02/20/19 at 14:15; Stop 02/20/19 at 16:47; Status DC Acetaminophen (Tylenol) 650 mg PRN Q6HRS PRN PO MILD PAIN / TEMP; Start at 14:15 Ibuprofen (Motrin) 800 mg Q8HRS PO Last administered on 02/21/19at 09:10; Start 02/20/19 at 22:00 Docusate Sodium (Colace) 100 mg PRN BID PRN PO CONSTIPATION Last administered on 02/21/19at 09:09; Start 02/20/19 at 14:15 Magnesium Hydroxide (Milk Of Magnesia) 2,400 mg PRN DAILY PRN PO CONSTIPATION; Start 02/20/19 at 14:15 Al Hydroxide/Mg Hydroxide (Mylanta Plus Xs) 30 ml PRN Q4HRS PRN PO HEARTBURN / GAS; Start 02/20/19 at 14:15 Simethicone (Gas-X) 80 mg PRN AFTMEALHC PRN PO GAS / BLOATING; Start 02/20/19 at 14:15 Diphenhydramine HCl (Benadryl) 25 mg PRN Q6HRS PRN PO ITCHING; Start 02/20/19 at 14:15 Benzocaine (Americaine) 1 spray PRN QID PRN TP TOPICAL PAIN Last administered on 02/20/19at 14:13; Start 02/20/19 at 14:15 Phenyleph/Shark Oil/Min Oil/Petrol (Preparation H) 1 mckenna PRN QID PRN RC RECTAL PAIN; Start 02/20/19 at 14:15 Hydrocortisone (Cortaid) 1 mckenna PRN QID PRN TP PERINEAL PAIN; Start 02/20/19 at 14:15 Zolpidem Tartrate (Ambien) 5 mg PRN QHS PRN PO INSOMNIA, MAY REPEAT X1; Start 02/20/19 at 14:15 Info (Do NOT chart on this placeholder) 1 ea 1X PRN PRN MC SEE COMMENTS; Start 02/20/19 at 14:15 Info (Do NOT chart on this placeholder) 1 ea 1X PRN PRN MC SEE COMMENTS; Start 02/20/19 at 14:15; Stop 02/20/19 at 16:47; Status DC Diphtheria/ Tetanus/Acell Pertussis (Boostrix) 0.5 ml ONCE ONCE VAX IM ; Start 02/20/19 at 16:00; Stop 02/20/19 at 16:01; Status DC Active Scripts Active Macrobid 100 Mg Capsule (Nitrofurantoin Monohyd/M-Cryst) 100 Mg Capsule 1 Cap PO BID Naproxen 500 Mg Tablet.dr 1 Tab PO BID Cyclobenzaprine Hcl 10 Mg Tablet 1 Tab PO TID Naproxen 500 Mg Tablet 1 Tab PO BID [place] 5-325 Tablet (Acetaminophen/Hydrocodone Bitart) 1 Each Tablet 1 Tab PO PRN Q6HRS PRN Keflex (Cephalexin) 500 Mg Capsule 1 Cap PO BID Reported Tablet (Pnv Cmb#95/Ferrous Fumarate/Fa) 1 Each Tablet 1 Tab PO DAILY Exam GEN: NAD, AOx3 HEENT: MMM, EOMI, no scleral icterus/injection Cardiac: RRR, no M/R/G Lungs: CTAB, regular breathing rate and effort Ab: NBS, NTTP Ext: no erythema/edema LE bilaterally Nuero: CN2-12 GI Assessment Pt is a 34yo [id number] s/p at 39.5wga 1) 2)GBS negative 3)Hb pending CARITO HOWARD MD Feb 21, 2019 10:53
[2019-02-21 11:46] LABS: HEMATOCRIT 31.6 % (36.0-47.0); HEMOGLOBIN 10.2 g/dL (12.0-15.5); RED BLOOD COUNT 3.99 x10^6/uL (3.50-5.40); RED CELL DISTRIBUTION WIDTH 15.8 % (11.5-14.5); WHITE BLOOD COUNT 11.7 x10^3/uL (4.0-11.0)
[2019-02-21 14:51] VITALS: BP 101/70
[2019-02-21 23:30] VITALS: BP 105/70
[2019-02-22] MEDS: DOCUSATE SODIUM 100 MG CAPSULE. PO PRN (06:07)
[2019-02-22] MEDS: IBUPROFEN 400 MG TABLET. PO SCH (06:07)
[2019-02-22 06:11] VITALS: BP 110/64
--- NOTE | 2019-02-22 08:26 | PDOC3 ---
OB DISCHARGE SUMMARY DATE OF ADMISSION: 02/20/19 DATE OF DISCHARGE: 02/22/19 REASON FOR ADMISSION: Onset of labor INTRAPARTUM PROCEDURES: Spontanous Vag Deliv, Perineal Laceration DISCHARGE DIAGNOSIS: Term Delivered DISCHARGE INFORMATION: Activity (As tolerated), Diet (Regular), Medications ( Ibuprofen 800mg TID, Docusate 100mg qday, Ferrous Sulfate 325mg qday), Instructions (Follow up with Dr. Howard in 4-6 weeks), Discharge to (Home) HOSPITAL COURSE Pt is a 34yo [id number] s/p at 39.5wga 1) 2)GBS negative 3)Anemia- cont Ferrous Sulfate on discharge CARITO HOWARD MD Feb 22, 2019 08:25
[2019-02-22 08:30] VITALS: BP 100/68
[2019-02-22 14:03] VITALS: BP 104/72
--- NOTE | 2019-02-22 14:15 | NUR ---
Discharge Note: [id number] RARDEN Discharge instructions and discharge home medications reviewed with Patient and a copy given. All questions have been answered and understanding verbalized. Pt. discharged home with self-care. This nurse helped pt. and family to private vehicle. This nurse helped family get belongings into car and watched mom and baby get settled into vehicle.
== END 2019-02-22 13:55 | disposition home or self-care (01) | DRG 806 ==
LOC: 3 SO LND 02:02 → OBSVTOIN 02:02 → 3 NORTH 15:44
PROVIDERS: ADMIT Family Medicine; ATTEND Family Medicine
PROC: 10E0XZZ Delivery of Products of Conception, External Approach (ICD-10-PCS; principal; 2019-02-20)
PROC: 0KQM0ZZ Repair Perineum Muscle, Open Approach (ICD-10-PCS; 2019-02-20)
DX: O28.0 Abnormal hematological finding on antenatal screening of mother (principal); D62 Acute posthemorrhagic anemia; Z37.0 Single live birth; O99.02 Anemia complicating childbirth; O70.1 Second degree perineal laceration during delivery; Z3A.39 39 weeks gestation of pregnancy; R76.11 Nonspecific reaction to tuberculin skin test without active tuberculosis
CPT/HCPCS: 36415; 81001; 85025; 85027; 86592; 86850; 86870; 86900; 86901; 87086; J2590; J7120

== ENCOUNTER → 2019-05-14 | Outpatient (CLI) | payer OTHER ==
--- NOTE | 2019-05-14 08:28 | RAD ---
Right upper quadrant abdominal ultrasound, 05/14/2019: HISTORY: Right upper quadrant pain The gallbladder is within normal limits in size. There is no sonographic evidence of cholelithiasis. The gallbladder serrano are not thickened. The common hepatic duct is mildly prominent measuring 6-7 mm. The distal common bile duct at the pancreatic level is not visible. No intrahepatic bile duct dilatation is seen. There is no evidence of a hepatic mass. The visualized portions of the pancreas and right kidney are unremarkable. IMPRESSION: 1. No gallbladder abnormality is detected. 2. Mild prominence of the common hepatic duct without evidence of intrahepatic bile duct dilatation. Correlation with laboratory dated is suggested in determining the significance of this finding. Electronically signed by: Krishna Go MD (05/14/2019 8:25 AM) [facility]
== END | disposition home or self-care (01) ==
LOC: US 07:15
PROVIDERS: ATTEND Family Medicine
DX: R10.11 Right upper quadrant pain (principal)
CPT/HCPCS: 76705

== ENCOUNTER 2019-05-25 21:05 | Emergency (ER) | payer MEDICAID, OTHER ==
[~2019-05-25] VITALS: Ht 157.5 cm; Wt 46.3 kg
[2019-05-25 21:05] VITALS: BP 110/66
--- NOTE | 2019-05-25 21:32 | PHYS DOC ---
Past Medical History Past Medical History: No Pertinent History Additional Past Medical Histor: TB Past Surgical History: No Surgical History Alcohol Use: None Drug Use: None Adult General Chief Complaint Chief Complaint: URINARY RETENTION HPI HPI Patient is a 34 year old female who presents with 3 months vaginal delivery. Patient states for the last week she's had pressure to bladder and burning with urination. Patient rates the pain a 7 out of 10 when urinating and states that she still has pressure discomfort that she also rates a 7 out of 10 just laying in the bed. Patient denies abdominal pain, fever, nausea, vomiting, sexual transmitted disease concerns, vaginal discharge or vaginal bleeding. Review of Systems Review of Systems Constitutional: Denies fever or chills [] Eyes: Denies change in visual acuity, redness, or eye pain [] HENT: Denies nasal congestion or sore throat [] Respiratory: Denies cough or shortness of breath [] Cardiovascular: No additional information not addressed in HPI [] GI: low abdominal pressure, denies nausea, vomiting, bloody stools or diarrhea [] : dysuria or denies hematuria [] Musculoskeletal: Denies back pain or joint pain [] Integument: Denies rash or skin lesions [] Neurologic: Denies headache, focal weakness or sensory changes [] All other systems were reviewed and found to be within normal limits, except as documented in this note. Allergies Allergies Allergies Coded Allergies Type Severity Reaction Last Updated Verified No Known Drug Allergies 07/10/16 No Physical Exam Physical Exam Constitutional: Well developed, well nourished, no acute distress, non-toxic appearance. [] HENT: Normocephalic, atraumatic, bilateral external ears normal, oropharynx moist, no oral exudates, nose normal. [] Eyes: PERRLA, EOMI, conjunctiva normal, no discharge. [] Neck: Normal range of motion, no tenderness, supple, no stridor. [] Cardiovascular:Heart rate regular rhythm, no murmur [] Lungs & Thorax: Bilateral breath sounds clear to auscultation [] Abdomen: Bowel sounds normal, soft, low mid tenderness, no masses, no pulsatile masses. [] Skin: Warm, dry, no erythema, no rash. [] Back: No tenderness, no CVA tenderness. [] Extremities: No tenderness, no cyanosis, no clubbing, ROM intact, no edema. [] Neurologic: Alert and oriented X 3, normal motor function, normal sensory function, no focal deficits noted. [] Psychologic: Affect normal, judgement normal, mood normal. [] Current Patient Data Vital Signs Vital Signs Date Time Temp Pulse Resp B/P (MAP) Pulse Ox O2 Delivery O2 Flow Rate FiO2 05/25/19 21:05 98.1 86 16 110/66 (81) 95 Room Air 98.1 Lab Values Laboratory Tests Test 05/25/19 19:25 Urine Collection Type Unknown Urine Color Yellow Urine Clarity Cloudy Urine pH 6.0 Urine Specific [place] >=1.030 Urine Protein >=300 mg/dL (NEG-TRACE) Urine Glucose (UA) Negative mg/dL (NEG) Urine Ketones (Stick) Negative mg/dL (NEG) Urine Blood Large (NEG) Urine Nitrite Negative (NEG) Urine Bilirubin Negative (NEG) Urine Urobilinogen Dipstick 1.0 mg/dL (0.2 mg/dL) Urine Leukocyte Esterase Moderate (NEG) Urine RBC Tntc /HPF (0-2) Urine WBC Tntc /HPF (0-4) Urine Squamous Epithelial Cells Occ /LPF Urine Bacteria Few /HPF (0-FEW) Urine Test Negative (NEG) EKG EKG [] Radiology/Procedures Radiology/Procedures [] Course & Med Decision Making Course & Med Decision Making Patient is a 34 year old female who presents with 3 months vaginal delivery. Patient states for the last week she's had pressure to bladder and burning with urination. Patient rates the pain a 7 out of 10 when urinating and states that she still has pressure discomfort that she also rates a 7 out of 10 just laying in the bed. Patient denies abdominal pain, fever, nausea, vomiting, sexual transmitted disease concerns, vaginal discharge or vaginal bleeding. Alert and oriented. Walks with a steady gait. Abdomen is soft and nontender but states there is increased discomfort when pushing over her bladder. With ultrasound there is only 2 mL a urine in the bladder. Vital signs are within normal limits. Lungs are clear to auscultation lobes. Patient's urine is infected. Patient will be treated for a urinary tract infection with Keflex since it is safe with breast feeding. Patient to follow-up with her primary care doctor. Dragon Disclaimer Dragon Disclaimer This electronic medical record was generated, in whole or in part, using a voice recognition dictation system. Departure Departure Impression: Primary Impression: UTI (urinary tract infection) Disposition: 01 HOME, SELF-CARE Condition: STABLE Referrals: CARITO HOWARD MD (PCP) Patient Instructions: Urinary Tract Infection Additional Instructions: Take medication as prescribed. The medication is safe with breast-feeding. Follow up with her primary care doctor. Scripts Cephalexin (KEFLEX) 500 Mg Capsule 1 CAP PO BID, #14 CAP Prov: OJHANN CHUN APRN 05/25/19 Problem Qualifiers Primary Impression: UTI (urinary tract infection) Urinary tract infection type: site unspecified Hematuria presence: with hematuria Qualified Codes: N39.0 - Urinary tract infection, site not specified; R31.9 - Hematuria, unspecified JOHANN CHUN APRN May 25, 2019 21:32
[2019-05-25 21:36] LABS: BILIRUBIN,URINE NEGATIVE (NEG); CLARITY,URINE CLOUDY; COLOR,URINE YELLOW; NITRITE,URINE NEGATIVE (NEG); PROTEIN,URINE >=300 mg/dL (NEG-TRACE)
[2019-05-25 21:40] LABS: U PREG PATIENT NEGATIVE (NEG)
[2019-05-25 21:42] LABS: BACTERIA,URINE FEW /HPF (0-FEW); RBC,URINE TNTC /HPF (0-2); SQUAMOUS EPITHELIAL CELL,UR OCC /LPF; WBC,URINE TNTC /HPF (0-4)
[2019-05-25] MEDS ORDERED: CEPH-264 PO (21:52)
== END 2019-05-25 22:13 | disposition home or self-care (01) ==
LOC: ER 21:05
DX: N39.0 Urinary tract infection, site not specified (principal); R31.9 Hematuria, unspecified
CPT/HCPCS: 81001; 81025; 87086; 99285-25

== ENCOUNTER → 2020-04-01 | Outpatient (CLI) | payer MEDICAID ==
--- NOTE | 2020-04-01 11:12 | RAD ---
EXAM: Chest, 2 views. HISTORY: TB exposure. COMPARISON: 11/21/2018 FINDINGS: 2 views of the chest are obtained. There is no infiltrate, pleural effusion or pneumothorax. The heart is normal in size. IMPRESSION: No acute pulmonary finding. Electronically signed by: Liliana Reid MD (04/01/2020 11:09 AM) [id number]
== END ==
LOC: RAD 10:32
PROVIDERS: ATTEND Family Medicine
DX: Z20.1 Contact with and (suspected) exposure to tuberculosis (principal)
CPT/HCPCS: 71046

== ENCOUNTER → 2020-05-19 | Outpatient (CLI) | payer OTHER, MEDICAID ==
--- NOTE | 2020-05-19 13:03 | KCIC ---
EXAM: CHEST ONE VIEW. HISTORY: Tuberculosis. COMPARISON: 04/01/2020. FINDINGS: A frontal view of the chest is obtained. Mild left suprahilar scarring and volume loss is stable chronically. There are no acute infiltrates. There is no pneumothorax or pleural effusion. The heart is not enlarged. IMPRESSION: 1. Chronic left suprahilar scarring is stable. No evidence of active mycobacterial disease. Electronically signed by: Radha De La Garza MD (05/19/2020 1:00 PM) [id number]
== END | disposition home or self-care (01) ==
LOC: KCIC 11:15
PROVIDERS: ATTEND Family Medicine
DX: A15.9 Respiratory tuberculosis unspecified (principal); J98.4 Other disorders of lung
CPT/HCPCS: 71045